=== PATIENT | male | born 1995 | race Caucasian/White ===

== ENCOUNTER 2023-09-18 17:28 | Emergency (ER) | payer OTHER ==
[2023-09-18] MEDS ORDERED: Ibuprofen 200 MG TAB ONE (18:23)
== END 2023-09-18 18:58 ==
LOC: NAV ERS 17:28
DX: S30.0XXA Contusion of lower back and pelvis, initial encounter (principal); I10 Essential (primary) hypertension; Z87.891 Personal history of nicotine dependence; W18.30XA Fall on same level, unspecified, initial encounter